=== PATIENT | female | born 1970 | race Caucasian/White ===

== ENCOUNTER → 2016-09-04 | Outpatient (CLI) | payer OTHER ==
[2016-09-04 16:47] LABS: HEMOGLOBIN A1C 5.27 % (4.2-6.0); MEAN BLOOD GLUCOSE (CALC) 89.491 mg/dL
[2016-09-04 16:56] LABS: ASPARTATE AMINO TRANSFERASE 22 IU/L (8-39); BILIRUBIN,TOTAL 0.8 mg/dL (0.3-1.2); BLOOD UREA NITROGEN 9 mg/dL (7-22); CALCIUM 9.5 mg/dL (8.7-10.7); CHLORIDE 106 meq/L (98-112); CREATININE 0.6 mg/dL (0.50-1.20); EST GLOMERULAR FILTRATION > 60 (>60 ml/min/1.73m(2)); GLUCOSE 86 mg/dL (78-110); POTASSIUM 5.5 meq/L (3.8-5.2); SODIUM 141 meq/L (135-145); TOTAL PROTEIN 7.7 g/dL (6.1-8.0)
== END ==
LOC: EDBD → LAB 10:43
PROVIDERS: ATTEND Physician Assistant Medical
DX: E16.2 Hypoglycemia, unspecified (principal); R53.83 Other fatigue; R51 Headache
CPT/HCPCS: 80053; 83036; 84443